=== PATIENT | female | born 1945 | race Caucasian/White ===

== ENCOUNTER 2022-07-07 14:42 | Inpatient (IN) ==
[2022-07-07] MEDS ORDERED: ONDANSETRON 4 MG/2 ML VIAL IV STA (15:46)
[2022-07-07] MEDS ORDERED: LACTATED RINGERS 2,000 ML IV ONE (15:46)
[2022-07-07 16:36] LABS: Basophils # 0.1 10*3/uL (0.0-0.2); Basophils % 0.4 % (0.0-0.8); Eosinophils # 0.1 10*3/uL (0.0-0.87); Eosinophils % 0.8 % (0.00-10.9); Hematocrit 33.4 VOL% (35.7-47.0); Immature Granulocytes % 0.5 %; Immature Granulocytes Absolute 0.08 #; Lymphocytes # 0.6 10*3/uL (1.4-4.0); Mean Corpuscular HGB Conc 32.9 GM/DL (32-36); Mean Corpuscular Volume 99.4 FL (87-102); Mean Platelet Volume 11.2 FL (9.6-12.0); Monocytes # 0.8 10*3/uL (0.11-0.8); Monocytes % 5.4 % (1.7-12.7); Neutrophils % 88.9 % (38.7-73.9); Platelet Count 158 T/CUMM (130-400); Red Blood Count 3.36 MC/CUMM (3.8-5.5); Red Cell Distribution Width 12.4 % (9.3-17.3); White Blood Count 14.6 T/CUMM (4-12)
[2022-07-07 16:48] LABS: Alanine Aminotransferase 20 U/L (13-56); Albumin 3.7 G/DL (3.4-5.0); Alkaline Phosphatase 156 U/L (45-117); Aspartate Amino Transferase 18 U/L (0-37); Blood Urea Nitrogen 41 MG/DL (7-18); Calcium 9.9 MG/DL (8.5-10.1); Carbon Dioxide 21 MMOL/L (21-32); Chloride 110 MMOL/L (98-107); Glucose 140 MG/DL (74-106); Osmolality,Calculated 288.5 MOS/KG (273-304); Potassium 4.4 MMOL/L (3.5-5.1); Sodium 139 MMOL/L (136-145); Total Protein 7.3 G/DL (6.4-8.2)
[2022-07-07 17:12] LABS: Eosinophils 2 % (0-10); Lymphocytes 5 % (20-55); Total Cells Counted 100
[2022-07-07 17:13] LABS: Platelet Estimate Adequate
[2022-07-07] MEDS ORDERED: ACETAMINOPHEN 325 MG TABLET PO PRN (17:31)
[2022-07-07] MEDS ORDERED: ONDANSETRON 4 MG/2 ML VIAL IV PRN (17:31)
[2022-07-07] MEDS ORDERED: ALBUTEROL/IPRATROPIUM 3 ML NEB RESP TX PRN (17:31)
[2022-07-07] MEDS ORDERED: NICOTINE 21 MG/24 HR PATCH TRANSDERM PRN (17:35)
[2022-07-07] MEDS: cefTRIAXone 1,000 MG in SODIUM CHLORIDE 0.9% 100 ML IV SCH (18:07)
[2022-07-07] MEDS: metroNIDAZOLE INJ 500 MG/100 ML PREMIX IV SCH (18:07)
[2022-07-07] MEDS: LACTATED RINGERS 1,000 ML IV SCH (18:07)
[2022-07-07 18:54] LABS: % Iron Saturation 28.1 % (18-50)
[2022-07-07 19:01] LABS: Folate 15.29 NG/ML (5.38-24.0)
[2022-07-08] MEDS: LACTATED RINGERS 1,000 ML IV SCH ×3 (03:09→22:14)
[2022-07-08] MEDS: metroNIDAZOLE INJ 500 MG/100 ML PREMIX IV SCH ×2 (06:27→17:46)
[2022-07-08] MEDS: LEVOTHYROXINE 88 MCG TABLET PO SCH (06:37)
[2022-07-08 07:10] LABS: Basophils % 0.3 % (0.0-0.8); Eosinophils % 0.2 % (0.00-10.9); Hematocrit 30.6 VOL% (35.7-47.0); Hemoglobin 10.1 GM/DL (12.0-16.0); Immature Granulocytes % 0.4 %; Immature Granulocytes Absolute 0.06 #; Lymphocytes # 0.8 10*3/uL (1.4-4.0); Lymphocytes % 5.8 % (21.3-54.2); Mean Corpuscular Volume 98.1 FL (87-102); Mean Platelet Volume 12.3 FL (9.6-12.0); Monocytes # 0.8 10*3/uL (0.11-0.8); Monocytes % 5.7 % (1.7-12.7); Neutrophils % 87.6 % (38.7-73.9); Platelet Count 141 T/CUMM (130-400); Red Blood Count 3.12 MC/CUMM (3.8-5.5); Red Cell Distribution Width 12.4 % (9.3-17.3); White Blood Count 14.4 T/CUMM (4-12)
[2022-07-08 07:51] LABS: Calcium 9.4 MG/DL (8.5-10.1); Osmolality,Calculated 274.2 MOS/KG (273-304); Potassium 4.2 MMOL/L (3.5-5.1); Risk Ratio 2.22; Thyroid Stimulating Hormone 1.18 uIU/ml (0.358-3.74)
[2022-07-08] MEDS: CHOLECALCIFEROL 5,000 UNIT TABLET PO SCH (08:54)
[2022-07-08] MEDS: PANTOPRAZOLE 40 MG TABLET PO SCH (08:54)
[2022-07-08] MEDS: ROSUVASTATIN 10 MG TABLET PO SCH (08:54)
[2022-07-08] MEDS ORDERED: NON-FORMULARY MEDICATION (Tiotropium Bromide [Spiriva With Handihaler] 18 MCG/CAPSULE caps INH SCH (09:00)
[2022-07-08] MEDS: cefTRIAXone 1,000 MG in SODIUM CHLORIDE 0.9% 100 ML IV SCH (17:13)
[2022-07-09 05:29] LABS: Basophils # 0.1 10*3/uL (0.0-0.2); Basophils % 0.5 % (0.0-0.8); Eosinophils # 0.2 10*3/uL (0.0-0.87); Eosinophils % 1.6 % (0.00-10.9); Hematocrit 27.4 VOL% (35.7-47.0); Immature Granulocytes % 0.4 %; Immature Granulocytes Absolute 0.04 #; Lymphocytes # 0.9 10*3/uL (1.4-4.0); Lymphocytes % 7.8 % (21.3-54.2); Mean Corpuscular HGB Conc 32.8 GM/DL (32-36); Mean Corpuscular Volume 99.3 FL (87-102); Mean Platelet Volume 11.7 FL (9.6-12.0); Monocytes # 0.6 10*3/uL (0.11-0.8); Monocytes % 5.6 % (1.7-12.7); Neutrophils % 84.1 % (38.7-73.9); Platelet Count 109 T/CUMM (130-400); Red Blood Count 2.76 MC/CUMM (3.8-5.5); Red Cell Distribution Width 12.5 % (9.3-17.3); White Blood Count 10.9 T/CUMM (4-12)
[2022-07-09] MEDS: metroNIDAZOLE INJ 500 MG/100 ML PREMIX IV SCH ×2 (05:40→17:14)
[2022-07-09] MEDS: LEVOTHYROXINE 88 MCG TABLET PO SCH (05:40)
[2022-07-09 05:43] LABS: Alanine Aminotransferase 11 U/L (13-56); Albumin 2.5 G/DL (3.4-5.0); Alkaline Phosphatase 85 U/L (45-117); Aspartate Amino Transferase 14 U/L (0-37); Bilirubin,Total < 0.39 MG/DL (0.20-1.00); Blood Urea Nitrogen 25 MG/DL (7-18); Calcium 9.3 MG/DL (8.5-10.1); Carbon Dioxide 21 MMOL/L (21-32); Chloride 116 MMOL/L (98-107); Glucose 89 MG/DL (74-106); Osmolality,Calculated 285.1 MOS/KG (273-304); Sodium 142 MMOL/L (136-145)
[2022-07-09] MEDS: LACTATED RINGERS 1,000 ML IV SCH ×4 (06:38→16:38)
[2022-07-09] MEDS: CHOLECALCIFEROL 5,000 UNIT TABLET PO SCH (08:53)
[2022-07-09] MEDS: ROSUVASTATIN 10 MG TABLET PO SCH (08:53)
[2022-07-09] MEDS: PANTOPRAZOLE 40 MG TABLET PO SCH (08:53)
[2022-07-09 15:16] LABS: RBC,Urine <1 /HPF (0-4)
[2022-07-09 15:17] LABS: Bilirubin,Urine Negative (Negative); Blood, Urine Moderate mg/dL (Negative); Glucose,Urine (UA) 250 mg/dL (Negative); Ketones,Urine 15 mg/dL (Negative); Nitrite,Urine Negative (Negative); Protein,Urine 30 mg/dL (Negative); Urine Appearance Clear (Clear); Urine Color Yellow (Yellow); Urine Urobilinogen 0.2 eU/dL (<2.0); Urine pH 7.5 (4.5-8.0)
[2022-07-09] MEDS: cefTRIAXone 1,000 MG in SODIUM CHLORIDE 0.9% 100 ML IV SCH (17:13)
[2022-07-10] MEDS: LACTATED RINGERS 1,000 ML IV SCH ×2 (00:02→06:43)
[2022-07-10] MEDS: metroNIDAZOLE INJ 500 MG/100 ML PREMIX IV SCH (06:14)
[2022-07-10] MEDS: LEVOTHYROXINE 88 MCG TABLET PO SCH (06:18)
[2022-07-10 06:24] LABS: Basophils # 0.1 10*3/uL (0.0-0.2); Basophils % 0.5 % (0.0-0.8); Eosinophils # 0.3 10*3/uL (0.0-0.87); Eosinophils % 2.9 % (0.00-10.9); Hematocrit 25.7 VOL% (35.7-47.0); Hemoglobin 8.4 GM/DL (12.0-16.0); Immature Granulocytes % 0.4 %; Immature Granulocytes Absolute 0.04 #; Lymphocytes % 10.8 % (21.3-54.2); Mean Corpuscular HGB Conc 32.7 GM/DL (32-36); Mean Corpuscular Volume 100.8 FL (87-102); Mean Platelet Volume 11.7 FL (9.6-12.0); Monocytes # 0.6 10*3/uL (0.11-0.8); Monocytes % 6.5 % (1.7-12.7); Neutrophils % 78.9 % (38.7-73.9); Platelet Count 116 T/CUMM (130-400); Red Blood Count 2.55 MC/CUMM (3.8-5.5); Red Cell Distribution Width 12.6 % (9.3-17.3); White Blood Count 9.3 T/CUMM (4-12)
[2022-07-10 06:50] LABS: Calcium 9.2 MG/DL (8.5-10.1); Osmolality,Calculated 286.8 MOS/KG (273-304); Potassium 3.9 MMOL/L (3.5-5.1)
[2022-07-10] MEDS: CHOLECALCIFEROL 5,000 UNIT TABLET PO SCH (09:27)
[2022-07-10] MEDS: ROSUVASTATIN 10 MG TABLET PO SCH (09:27)
[2022-07-10] MEDS: PANTOPRAZOLE 40 MG TABLET PO SCH (09:28)
[2022-07-10 12:08] VITALS: BP 125/69
[2022-07-10] MEDS ORDERED: metroNIDAZOLE 500 MG TABLET PO SCH (21:00)
[2022-07-11] MEDS ORDERED: CIPROFLOXACIN 500 MG TABLET PO SCH (09:00)
== END 2022-07-10 14:00 | disposition home or self-care (01) | DRG 394 ==
LOC: EDUNIT# → EDBD → N.ED 14:42 → N.EDINP 14:42 → N.2W 19:10 → SUATTDRO 07-08 10:54
PROVIDERS: ADMIT Internal Medicine; ATTEND Hospitalist